=== PATIENT | male | born 1995 | race Two or more races ===

== ENCOUNTER → 2019-09-25 | Outpatient (CLI) | payer OTHER ==
--- NOTE | 2019-09-25 16:53 | RAD ---
STUDY: MRI of the left knee without contrast INDICATION: Medial and posterior pain while playing soccer. COMPARISON: None. TECHNIQUE: Multiplanar MR imaging of the left knee performed without the use of intravenous or intra-articular contrast. FINDINGS: Menisci: Vertical longitudinal tear at the periphery of the medial meniscus extending from the mid body through the posterior horn. Possible propagation into the posterior root however root fibers remain intact and well visualized. No medial meniscal extrusion. Intact lateral meniscus. Cruciate ligaments: Intact PCL. Disrupted ACL but likely chronic. Collateral ligaments: No acute injury of the medial or lateral collateral ligaments. Tendons: Intact. Cartilage: Patellofemoral: Fissuring at the medial patellar facet and intervening chondral delamination. On image 8 series 5, the fissure appears full-thickness. Chondral heterogeneity extending to involve the median ridge. Intact trochlear cartilage. Lateral compartment: No full-thickness chondral defect identified. Medial compartment: No full-thickness chondral defect identified. Bones: No acute fracture. Normal marrow signal. Miscellaneous: Very small knee joint effusion. Small loose body seen posterior to the PCL, image 19 series 6. Tiny Ramirez's cyst. IMPRESSION: 1. Vertical longitudinal tear at the periphery of the medial meniscus extending from the mid body through the posterior horn. Potential propagation into the posterior root however root fibers remain intact. 2. Disrupted ACL but likely on a chronic basis. 3. Fissuring and delamination at the medial patellar facet with one of the fissures appearing to be full-thickness. No high-grade chondrosis seen elsewhere. 4. Small knee joint effusion and a small loose body which is seen posterior to the PCL. 5. Trace Ramirez's cyst. Electronically signed by: CHARLOTTE GRUBBS MD (09/25/2019 4:50 PM) [id number]
== END | disposition home or self-care (01) ==
LOC: MRI 12:30
PROVIDERS: ATTEND Family Medicine
DX: S83.222A Peripheral tear of medial meniscus, current injury, left knee, initial encounter (principal); M25.462 Effusion, left knee; X58.XXXA Exposure to other specified factors, initial encounter; Y93.66 Activity, soccer; Y92.89 Other specified places as the place of occurrence of the external cause; Y99.8 Other external cause status
CPT/HCPCS: 73721